=== PATIENT | male | born 1955 | race African-American/Black ===

== ENCOUNTER 2019-12-03 13:25 | Inpatient (IN) | payer OTHER ==
--- NOTE | 2019-12-03 14:17 | BHS.RME ---
Substance Use & Tx History - Substance Use History Heroin Substance amount: 1.5 bundle Frequency of use: Daily Substance route: Inhalation (ex: sniffing or snorting) Date of Last Use: 12/02/19 Alcohol Substance amount: 3 shots Vodka Frequency of use: Less than 3 times per week Substance route: Oral Date of Last Use: 12/02/19 Marijuana/Hashish Substance amount: few drags on a joint Frequency of use: Daily Substance route: Smoking Date of Last Use: 12/02/19 Nicotine Substance amount: 10 cigs Frequency of use: Daily Substance route: Smoking Date of Last Use: 12/03/19 Physical/Psych/Mental Status - Behavior General Behavior: Increased activity (restlessness, agitation) Eye Contact: Normal - Cooperativeness Cooperativeness: Cooperative - Thinking Thought Processes: Tight Thought content: Future oriented - Physical Health Problems Is patient presently having any pain?: No Does patient presently have any injuries (include location): No Does patient currently have a fever: No COWS - Scale Resting Pulse: 0= [place] 80 or Below Sweatin= Beads of Sweat on Face Restless Observation: 1= Difficult to Sit Still Pupil Size: 0= Normal to Room Light Bone or Joint Aches: 1= Mild Discomfort Runny Nose/ Eye Tearin= Runny Nose/Eyes GI Upset > 30mins: 2= Nausea/Diarrhea Tremor Observation: 2= Slight Tremor Visible Yawning Observation: 0= None Anxiety or Irritability: 1=Feels Anxious/Irritable Goose Flesh Skin: 0=Smooth Skin COWS Score: 12 CIWA Nausea/Vomitin-Mild Nausea/No Vomiting Muscle Tremors: 2 Anxiety: 3 Agitation: 0-Normal Activity Paroxysmal Sweats: 4-Forehead w/Sweat Beads Orientation: 0-Oriented Tacttile Disturbances: 0-None Auditory Disturbances: 0-None Visual Disturbances: 0-None Headache: 0-None Present CIWA-Ar Total Score: 10
[2019-12-03 17:14] VITALS: BMI 20.2
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
[2019-12-03] MEDS ORDERED: MAGNESIUM CITRATE 300 ML BOTTLE PO PRN (18:12)
[2019-12-03] MEDS ORDERED: MAG HYDROX/AL HYDROX/SIMETH 30 ML UNIT-DOSE CUP PO PRN (18:12)
[2019-12-03] MEDS ORDERED: MENTHOL/PHENOL 1 EACH UD MM PRN (18:12)
[2019-12-03] MEDS ORDERED: P-EPHED 60MG/TRIPROLIDI 2.5MG TABLET PO PRN (18:12)
[2019-12-03] MEDS ORDERED: guaiFENesin 200 MG/10 ML 10 ML UNIT-DOSE CUPS PO PRN (18:12)
[2019-12-03] MEDS ORDERED: NICOTINE POLACRILEX 2 MG GUM BUC PRN (18:12)
[2019-12-03] MEDS ORDERED: ACETAMINOPHEN 325 MG TABLET (FP) PO PRN ×2 (18:12)
[2019-12-03] MEDS ORDERED: IBUPROFEN 400 MG TABLET (FP) PO PRN (18:12)
[2019-12-03] MEDS ORDERED: ONDANSETRON *ODT* 4 MG TABLET SL ONE (18:12)
[2019-12-03] MEDS ORDERED: BISMUTH SUBSALICYLATE 524 MG/30 ML UD PO PRN (18:12)
[2019-12-03] MEDS ORDERED: diazePAM 5 MG TABLET PO PRN (18:18)
[2019-12-03] MEDS ORDERED: METHADONE HCL 10 MG TABLET (FOR DETOX USE ONLY) PO ONE (18:24)
[2019-12-04] MEDS: MELATONIN 5 MG TABLETS PO SCH ×2 (00:17→21:07)
[2019-12-04] MEDS: THIAMINE HCL 100 MG TABLET (FP) PO SCH ×2 (00:17→21:07)
[2019-12-04] MEDS: hydrOXYzine PAMOATE 50 MG CAPSULE (FP) PO SCH ×2 (00:17→22:47)
[2019-12-04] MEDS ORDERED: METHADONE HCL 10 MG TABLET (FOR DETOX USE ONLY) ONE (09:05)
[2019-12-04] MEDS ORDERED: METHADONE HCL 5 MG TABLET (FOR DETOX USE ONLY) ONE (09:05)
[2019-12-04] MEDS ORDERED: METHADONE (DETOX) 20 MG, METHADONE (DETOX) 5 MG PO ONE (10:00)
[2019-12-04 10:13] LABS: HEMATOCRIT 40.3 % (35.4-49); HEMOGLOBIN 13.4 GM/dL (11.7-16.9); MCH 30.5 pg (25.7-33.7); MCHC 33.3 g/dl (32.0-35.9); MEAN CELL VOLUME 91.6 fl (80-96); MEAN PLT VOLUME 9.6 fl (7.5-11.1); PLATELET COUNT 194 K/MM3 (134-434); RDW 13.5 % (11.9-15.9); WHITE BLOOD COUNT 3.7 K/mm3 (4.0-10.0)
[2019-12-04 10:22] LABS: ALBUMIN 3.1 g/dl (3.4-5.0); BILIRUBIN,TOTAL 0.6 mg/dL (0.2-1); BLOOD UREA NITROGEN 12.6 mg/dL (7-18); CALCIUM 8.8 mg/dL (8.5-10.1); CREATININE 0.9 mg/dL (0.55-1.3); POTASSIUM 3.9 mmol/L (3.5-5.1); TOT PROT 5.9 g/dl (6.4-8.2)
[2019-12-04] MEDS: PRENATAL VITAMINS W/ FOLIC ACID TABLET (FP) PO SCH (10:29)
[2019-12-04] MEDS: NICOTINE 14 MG/24 HOURS TOPICAL PATCH TD SCH (10:29)
--- NOTE | 2019-12-04 11:33 | PN ---
BHS COWS - Scale Resting Pulse: 0= [place] 80 or Below Sweatin= Chills/Flushing Restless Observation: 1= Difficult to Sit Still Pupil Size: 0= Normal to Room Light Bone or Joint Aches: 2= Severe Diffuse Aches Runny Nose/ Eye Tearin= Nasal Congestion GI Upset > 30mins: 0= None Tremor Observation of Outstretched Hands: 2= Slight Tremor Visible Yawning Observation: 0= None Anxiety or Irritability: 2=Irritable/Anxious Goose Flesh Skin: 0=Smooth Skin COWS Score: 9 BHS Progress Note (SOAP) Subjective: Complaints of chills, anxiety, joint aches, and nasal congestion. Objective: 12/04/19 11:32 Vital Signs 12/04/19 12/04/19 12/04/19 05:43 06:37 09:02 Temperature 98 F 97.8 F Pulse Rate 42 L 45 L 53 L Respiratory 16 19 Rate Blood Pressure 167/95 147/79 142/76 O2 Sat by Pulse 97 Oximetry (%) 12/04/19 09:28 Temperature Pulse Rate Respiratory Rate Blood Pressure O2 Sat by Pulse 96 Oximetry (%) Laboratory Last Values WBC 3.7 K/mm3 (4.0-10.0) L 12/04/19 07:25 RBC 4.40 M/mm3 (4.00-5.60) 12/04/19 07:25 Hgb 13.4 GM/dL (11.7-16.9) 12/04/19 07:25 Hct 40.3 % (35.4-49) 12/04/19 07:25 MCV 91.6 fl (80-96) 12/04/19 07:25 MCH 30.5 pg (25.7-33.7) 12/04/19 07:25 MCHC 33.3 g/dl (32.0-35.9) 12/04/19 07:25 RDW 13.5 % (11.9-15.9) 12/04/19 07:25 Plt Count 194 K/MM3 (134-434) 12/04/19 07:25 MPV 9.6 fl (7.5-11.1) 12/04/19 07:25 Sodium 141 mmol/L (136-145) 12/04/19 07:25 Potassium 3.9 mmol/L (3.5-5.1) 12/04/19 07:25 Chloride 105 mmol/L (98-107) 12/04/19 07:25 Carbon Dioxide 30 mmol/L (21-32) 12/04/19 07:25 Anion Gap 6 MMOL/L (8-16) L 12/04/19 07:25 BUN 12.6 mg/dL (7-18) 12/04/19 07:25 Creatinine 0.9 mg/dL (0.55-1.3) 12/04/19 07:25 Est GFR (CKD-EPI)AfAm 104.24 12/04/19 07:25 Est GFR (CKD-EPI)NonAf 89.94 12/04/19 07:25 Random Glucose 85 mg/dL (74-106) 12/04/19 07:25 Calcium 8.8 mg/dL (8.5-10.1) 12/04/19 07:25 Total Bilirubin 0.6 mg/dL (0.2-1) 12/04/19 07:25 AST 17 U/L (15-37) 12/04/19 07:25 ALT 13 U/L (13-61) 12/04/19 07:25 Alkaline Phosphatase 62 U/L (45-117) 12/04/19 07:25 Total Protein 5.9 g/dl (6.4-8.2) L 12/04/19 07:25 Albumin 3.1 g/dl (3.4-5.0) L 12/04/19 07:25 Syphilis Serology Non-reactive (NONREACTIVE) 12/04/19 07:25 Labs noted. Assessment: 12/03Alert and oriented x 3, in no acute respiratory distress. Full ROM, ambulating in unit without assistance. Skin warm to touch without any lesions. Withdrawal symptoms. Plan: Continue detox protocol.
--- NOTE | 2019-12-04 15:00 | EKG ---
Test Reason : Blood Pressure : / mmHG Vent. Rate : 049 BPM Atrial Rate : 049 BPM P-R Int : 128 ms QRS Dur : 092 ms QT Int : 446 ms P-R-T Axes : 029 048 077 degrees QTc Int : 402 ms SINUS BRADYCARDIA POSSIBLE LEFT ATRIAL ENLARGEMENT INCOMPLETE RIGHT BUNDLE BRANCH BLOCK LEFT VENTRICULAR HYPERTROPHY CANNOT RULE OUT SEPTAL INFARCT , AGE UNDETERMINED ABNORMAL ECG NO PREVIOUS ECGS AVAILABLE Confirmed by Juan Manuel Jean ([id number]) on 12/04/2019 3:00:13 PM Referred By: Confirmed By:Juan Manuel Jean
[2019-12-05] MEDS ORDERED: METHADONE HCL 10 MG TABLET (FOR DETOX USE ONLY) PO ONE (10:00)
--- NOTE | 2019-12-05 10:34 | PN ---
BHS COWS - Scale Resting Pulse: 1= [place] 81-100 Sweatin= Chills/Flushing Restless Observation: 1= Difficult to Sit Still Pupil Size: 0= Normal to Room Light Bone or Joint Aches: 1= Mild Discomfort Runny Nose/ Eye Tearin= None GI Upset > 30mins: 0= None Tremor Observation of Outstretched Hands: 1= Tremor [place], Not Seen Yawning Observation: 0= None Anxiety or Irritability: 2=Irritable/Anxious Goose Flesh Skin: 0=Smooth Skin COWS Score: 7 BHS Progress Note (SOAP) Subjective: Complaints of irritability, interrupted sleep, chills and body aches. Objective: 12/05/19 10:33 Vital Signs 12/05/19 12/05/19 05:21 08:57 Temperature 97.1 F L 98.4 F Pulse Rate 42 L 83 Respiratory 16 17 Rate Blood Pressure 143/70 121/72 O2 Sat by Pulse 98 98 Oximetry (%) Laboratory Last Values WBC 3.7 K/mm3 (4.0-10.0) L 12/04/19 07:25 RBC 4.40 M/mm3 (4.00-5.60) 12/04/19 07:25 Hgb 13.4 GM/dL (11.7-16.9) 12/04/19 07:25 Hct 40.3 % (35.4-49) 12/04/19 07:25 MCV 91.6 fl (80-96) 12/04/19 07:25 MCH 30.5 pg (25.7-33.7) 12/04/19 07:25 MCHC 33.3 g/dl (32.0-35.9) 12/04/19 07:25 RDW 13.5 % (11.9-15.9) 12/04/19 07:25 Plt Count 194 K/MM3 (134-434) 12/04/19 07:25 MPV 9.6 fl (7.5-11.1) 12/04/19 07:25 Sodium 141 mmol/L (136-145) 12/04/19 07:25 Potassium 3.9 mmol/L (3.5-5.1) 12/04/19 07:25 Chloride 105 mmol/L (98-107) 12/04/19 07:25 Carbon Dioxide 30 mmol/L (21-32) 12/04/19 07:25 Anion Gap 6 MMOL/L (8-16) L 12/04/19 07:25 BUN 12.6 mg/dL (7-18) 12/04/19 07:25 Creatinine 0.9 mg/dL (0.55-1.3) 12/04/19 07:25 Est GFR (CKD-EPI)AfAm 104.24 12/04/19 07:25 Est GFR (CKD-EPI)NonAf 89.94 12/04/19 07:25 Random Glucose 85 mg/dL (74-106) 12/04/19 07:25 Calcium 8.8 mg/dL (8.5-10.1) 12/04/19 07:25 Total Bilirubin 0.6 mg/dL (0.2-1) 12/04/19 07:25 AST 17 U/L (15-37) 12/04/19 07:25 ALT 13 U/L (13-61) 12/04/19 07:25 Alkaline Phosphatase 62 U/L (45-117) 12/04/19 07:25 Total Protein 5.9 g/dl (6.4-8.2) L 12/04/19 07:25 Albumin 3.1 g/dl (3.4-5.0) L 12/04/19 07:25 Syphilis Serology Non-reactive (NONREACTIVE) 12/04/19 07:25 COVID-19 (CANDIDO) Not detected (Not Detected) 12/03/19 19:00 Labs noted. Assessment: 12/05/19 10:33 Alert and oriented x 3, in no acute respiratory distress. Full ROM, ambulatory in unit without any assistance. Skin warm to touch without any lesions. Withdrawal symptoms. Plan: Continue detox protocol.
[2019-12-05] MEDS: PRENATAL VITAMINS W/ FOLIC ACID TABLET (FP) PO SCH (10:37)
[2019-12-05] MEDS: MAGNESIUM HYDROX 2400MG/30ML ORAL SUSPENSION 30 ML CUP PO PRN (10:39)
[2019-12-05] MEDS: NICOTINE 14 MG/24 HOURS TOPICAL PATCH TD SCH (10:40)
[2019-12-05] MEDS: hydrOXYzine PAMOATE 50 MG CAPSULE (FP) PO SCH (22:38)
[2019-12-05] MEDS: MELATONIN 5 MG TABLETS PO SCH (22:40)
[2019-12-05] MEDS: THIAMINE HCL 100 MG TABLET (FP) PO SCH (22:40)
[2019-12-06] MEDS ORDERED: METHADONE HCL 10 MG TABLET (FOR DETOX USE ONLY) ONE (09:26)
[2019-12-06] MEDS ORDERED: METHADONE HCL 5 MG TABLET (FOR DETOX USE ONLY) ONE (09:26)
[2019-12-06] MEDS ORDERED: METHADONE (DETOX) 10 MG, METHADONE (DETOX) 5 MG PO ONE (10:00)
[2019-12-06] MEDS: NICOTINE 14 MG/24 HOURS TOPICAL PATCH TD SCH (10:59)
[2019-12-06] MEDS: PRENATAL VITAMINS W/ FOLIC ACID TABLET (FP) PO SCH (10:59)
[2019-12-06] MEDS: MAGNESIUM HYDROX 2400MG/30ML ORAL SUSPENSION 30 ML CUP PO PRN (11:00)
[2019-12-06 11:52] VITALS: BP 144/64; PULSE 42; TEMP 98.6
--- NOTE | 2019-12-06 12:29 | PN ---
[facility] CIWA - CIWA Score Nausea/Vomitin-No Nausea/No Vomiting Muscle Tremors: None Anxiety: 1-Mildly Anxious Agitation: 0-Normal Activity Paroxysmal Sweats: No Perspiration Orientation: 0-Oriented Tacttile Disturbances: 0-None Auditory Disturbances: 0-None Visual Disturbances: 0-None Headache: 0-None Present CIWA-Ar Total Score: 1 S COWS - Scale Resting Pulse: 0= [place] 80 or Below Sweatin= No chills or Flushing Restless Observation: 0= Sits Still Pupil Size: 0= Normal to Room Light Bone or Joint Aches: 0= None Runny Nose/ Eye Tearin= None GI Upset > 30mins: 0= None Tremor Observation of Outstretched Hands: 0= None Yawning Observation: 0= None Anxiety or Irritability: 1=Feels Anxious/Irritable Goose Flesh Skin: 0=Smooth Skin COWS Score: 1 [facility] Progress Note (SOAP) Subjective: alert,no complaint Objective: 12/06/19 12:26 Vital Signs Temperature 98.6 F 12/06/19 09:03 Pulse Rate 42 L 12/06/19 09:03 Respiratory Rate 18 12/06/19 09:03 Blood Pressure 144/64 12/06/19 09:03 O2 Sat by Pulse Oximetry (%) 99 12/06/19 09:03 12/06/19 12:26 no withdrawal symptom 12/06/19 12:27 Laboratory Last Values WBC 3.7 K/mm3 (4.0-10.0) L 12/04/19 07:25 RBC 4.40 M/mm3 (4.00-5.60) 12/04/19 07:25 Hgb 13.4 GM/dL (11.7-16.9) 12/04/19 07:25 Hct 40.3 % (35.4-49) 12/04/19 07:25 MCV 91.6 fl (80-96) 12/04/19 07:25 MCH 30.5 pg (25.7-33.7) 12/04/19 07:25 MCHC 33.3 g/dl (32.0-35.9) 12/04/19 07:25 RDW 13.5 % (11.9-15.9) 12/04/19 07:25 Plt Count 194 K/MM3 (134-434) 12/04/19 07:25 MPV 9.6 fl (7.5-11.1) 12/04/19 07:25 Sodium 141 mmol/L (136-145) 12/04/19 07:25 Potassium 3.9 mmol/L (3.5-5.1) 12/04/19 07:25 Chloride 105 mmol/L (98-107) 12/04/19 07:25 Carbon Dioxide 30 mmol/L (21-32) 12/04/19 07:25 Anion Gap 6 MMOL/L (8-16) L 12/04/19 07:25 BUN 12.6 mg/dL (7-18) 12/04/19 07:25 Creatinine 0.9 mg/dL (0.55-1.3) 12/04/19 07:25 Est GFR (CKD-EPI)AfAm 104.24 12/04/19 07:25 Est GFR (CKD-EPI)NonAf 89.94 12/04/19 07:25 Random Glucose 85 mg/dL (74-106) 12/04/19 07:25 Calcium 8.8 mg/dL (8.5-10.1) 12/04/19 07:25 Total Bilirubin 0.6 mg/dL (0.2-1) 12/04/19 07:25 AST 17 U/L (15-37) 12/04/19 07:25 ALT 13 U/L (13-61) 12/04/19 07:25 Alkaline Phosphatase 62 U/L (45-117) 12/04/19 07:25 Total Protein 5.9 g/dl (6.4-8.2) L 12/04/19 07:25 Albumin 3.1 g/dl (3.4-5.0) L 12/04/19 07:25 Syphilis Serology Non-reactive (NONREACTIVE) 12/04/19 07:25 COVID-19 (CANDIDO) Not detected (Not Detected) 12/03/19 19:00 Assessment: 12/06/19 12:27 no withdrawal symptom Plan: stable for discharge today,follow up with after care program as arrangement
--- NOTE | 2019-12-06 12:34 | DS ---
[facility] Detox Discharge Summary Admission Date: 12/03/19 Discharge Date: 12/06/19 - History Present History: Alcohol Dependence, Cocaine Dependence, Opioid Dependence Additional Comments: alert,oriented x 3 ambulation on the unit lung clear on auscultation bilaterally abdomen soft,no distension,no pain no swelling of legs no withdrawal symptom stable for discharge today patient will go home and stay with his daughter decline rehab in [place] stated will go to [facility] by himself left the unit in stable condition total time spnding on discharge 35 minutes Pertinent Past History: nicotine dependence - Physical Exam Results Vital Signs: Vital Signs Temperature 98.6 F 12/06/19 09:03 Pulse Rate 42 L 12/06/19 09:03 Respiratory Rate 18 12/06/19 09:03 Blood Pressure 144/64 12/06/19 09:03 O2 Sat by Pulse Oximetry (%) 99 12/06/19 09:03 Pertinent Admission Physical Exam Findings: withdrawal signs and symptom Laboratory Last Values WBC 3.7 K/mm3 (4.0-10.0) L 12/04/19 07:25 RBC 4.40 M/mm3 (4.00-5.60) 12/04/19 07:25 Hgb 13.4 GM/dL (11.7-16.9) 12/04/19 07:25 Hct 40.3 % (35.4-49) 12/04/19 07:25 MCV 91.6 fl (80-96) 12/04/19 07:25 MCH 30.5 pg (25.7-33.7) 12/04/19 07:25 MCHC 33.3 g/dl (32.0-35.9) 12/04/19 07:25 RDW 13.5 % (11.9-15.9) 12/04/19 07:25 Plt Count 194 K/MM3 (134-434) 12/04/19 07:25 MPV 9.6 fl (7.5-11.1) 12/04/19 07:25 Sodium 141 mmol/L (136-145) 12/04/19 07:25 Potassium 3.9 mmol/L (3.5-5.1) 12/04/19 07:25 Chloride 105 mmol/L (98-107) 12/04/19 07:25 Carbon Dioxide 30 mmol/L (21-32) 12/04/19 07:25 Anion Gap 6 MMOL/L (8-16) L 12/04/19 07:25 BUN 12.6 mg/dL (7-18) 12/04/19 07:25 Creatinine 0.9 mg/dL (0.55-1.3) 12/04/19 07:25 Est GFR (CKD-EPI)AfAm 104.24 12/04/19 07:25 Est GFR (CKD-EPI)NonAf 89.94 12/04/19 07:25 Random Glucose 85 mg/dL (74-106) 12/04/19 07:25 Calcium 8.8 mg/dL (8.5-10.1) 12/04/19 07:25 Total Bilirubin 0.6 mg/dL (0.2-1) 12/04/19 07:25 AST 17 U/L (15-37) 12/04/19 07:25 ALT 13 U/L (13-61) 12/04/19 07:25 Alkaline Phosphatase 62 U/L (45-117) 12/04/19 07:25 Total Protein 5.9 g/dl (6.4-8.2) L 12/04/19 07:25 Albumin 3.1 g/dl (3.4-5.0) L 12/04/19 07:25 Syphilis Serology Non-reactive (NONREACTIVE) 12/04/19 07:25 COVID-19 (CANDIDO) Not detected (Not Detected) 12/03/19 19:00 Vital Signs Temperature 98.6 F 12/06/19 09:03 Pulse Rate 42 L 12/06/19 09:03 Respiratory Rate 18 12/06/19 09:03 Blood Pressure 144/64 12/06/19 09:03 O2 Sat by Pulse Oximetry (%) 99 12/06/19 09:03 - Treatment Hospital Course: Detox Protocol Followed, Detoxed Safely, Responded well, Discharged Condition Good Patient has Accepted a Rehab Referral to: declined - Medication Discharge Medications: Ambulatory Orders NK [No Known Home Medication] 12/03/19 - Diagnosis (1) Opioid dependence with withdrawal Current Visit: Yes Status: Acute (2) Alcohol dependence, uncomplicated Current Visit: Yes Status: Chronic (3) Cocaine abuse Current Visit: Yes Status: Chronic (4) Nicotine dependence, unspecified, uncomplicated Current Visit: Yes Status: Chronic Qualifiers: Nicotine product type: cigarettes Qualified Code(s): F17.210 - Nicotine dependence, cigarettes, uncomplicated - AMA Did Patient Leave Against Medical Advice: No
[2019-12-07] MEDS ORDERED: METHADONE HCL 10 MG TABLET (FOR DETOX USE ONLY) PO ONE (10:00)
[2019-12-08] MEDS ORDERED: METHADONE HCL 5 MG TABLET (FOR DETOX USE ONLY) PO ONE (06:00)
== END 2019-12-06 12:55 | disposition home or self-care (01) | DRG 773 ==
LOC: YASAS 13:25 → Y6N 17:23
PROVIDERS: ADMIT Allergy & Immunology; ATTEND Allergy & Immunology
PROC: HZ2ZZZZ Detoxification Services for Substance Abuse Treatment (ICD-10-PCS; principal; 2019-12-03)
DX: F11.23 Opioid dependence with withdrawal (principal); F10.230 Alcohol dependence with withdrawal, uncomplicated; F14.20 Cocaine dependence, uncomplicated; F12.20 Cannabis dependence, uncomplicated; F17.210 Nicotine dependence, cigarettes, uncomplicated; F41.9 Anxiety disorder, unspecified
CPT/HCPCS: 36415; 80053; 85027; 86780; 93005; 93010; Q0162; U0003

== ENCOUNTER 2020-11-14 10:28 | Inpatient (IN) | payer OTHER ==
[2020-11-14 11:06] VITALS: BMI 20.8
[2020-11-14] MEDS ORDERED: MENTHOL/PHENOL 1 EACH UD MM PRN (12:47)
[2020-11-14] MEDS ORDERED: MAG HYDROX/AL HYDROX/SIMETH 30 ML UNIT-DOSE CUP PO PRN (12:47)
[2020-11-14] MEDS ORDERED: BISMUTH SUBSALICYLATE 524 MG/30 ML PO PRN (12:47)
[2020-11-14] MEDS ORDERED: MAGNESIUM HYDROX 2400MG/30ML ORAL SUSPENSION 30 ML CUP PO PRN (12:47)
[2020-11-14] MEDS ORDERED: IBUPROFEN 400 MG TABLET (FP) PO PRN (12:47)
[2020-11-14] MEDS ORDERED: MAGNESIUM CITRATE 300 ML BOTTLE PO PRN (12:47)
[2020-11-14] MEDS ORDERED: ACETAMINOPHEN 325 MG TABLET (FP) PO PRN ×2 (12:47)
[2020-11-14] MEDS ORDERED: ONDANSETRON *ODT* 4 MG TABLET SL PRN (12:47)
[2020-11-14] MEDS ORDERED: clonazePAM 0.5 MG ODT TABLETS SL PRN (12:47)
[2020-11-14] MEDS ORDERED: methaDONE HCL 10 MG TABLET (FOR DETOX USE ONLY) PO ONE (13:15)
[2020-11-14] MEDS: PRENATAL VITAMINS W/ FOLIC ACID TABLET (FP) PO SCH (13:56)
[2020-11-14] MEDS: hydrOXYzine PAMOATE 25 MG CAPSULE (FP) PO SCH ×3 (13:56→22:43)
[2020-11-14] MEDS: METHOCARBAMOL 500 MG TABLET PO PRN (13:56)
[2020-11-14 17:38] LABS: ALBUMIN 3.4 g/dl (3.4-5.0); BLOOD UREA NITROGEN 13.4 mg/dL (7-18); HEMOGLOBIN 13.1 GM/dL (11.7-16.9); MCH 29.6 pg (25.7-33.7); MCHC 33.6 g/dl (32.0-35.9); MEAN PLT VOLUME 9.2 fl (7.5-11.1); PLATELET COUNT 222 10^3/uL (134-434); RBC 4.43 M/mm3 (4.00-5.60); RDW 13.8 % (11.9-15.9); WHITE BLOOD COUNT 4.8 K/mm3 (4.0-10.0)
[2020-11-14 17:41] LABS: CREATININE 0.9 mg/dL (0.55-1.3)
[2020-11-14 17:43] LABS: BILIRUBIN,TOTAL 0.6 mg/dL (0.2-1); TOT PROT 6.4 g/dl (6.4-8.2)
[2020-11-14] MEDS: MELATONIN 5 MG TABLETS PO SCH (22:42)
[2020-11-14] MEDS: THIAMINE HCL 100 MG TABLET (FP) PO SCH (22:43)
[2020-11-15] MEDS: hydrOXYzine PAMOATE 25 MG CAPSULE (FP) PO SCH ×2 (05:05→10:32)
[2020-11-15] MEDS: METHOCARBAMOL 500 MG TABLET PO PRN (06:50)
[2020-11-15] MEDS: cloNIDine HCL 0.1 MG TABLET PO PRN (06:50)
[2020-11-15] MEDS ORDERED: methaDONE HCL 10 MG TABLET (FOR DETOX USE ONLY) ONE (09:13)
[2020-11-15] MEDS: PRENATAL VITAMINS W/ FOLIC ACID TABLET (FP) PO SCH (10:28)
[2020-11-15] MEDS: hydrOXYzine PAMOATE 25 MG CAPSULE (FP) PO PRN (10:30)
[2020-11-15] MEDS: THIAMINE HCL 100 MG TABLET (FP) PO SCH ×2 (23:02→23:59)
[2020-11-15] MEDS: MELATONIN 5 MG TABLETS PO SCH (23:02)
[2020-11-16] MEDS: MELATONIN 5 MG TABLETS PO SCH ×2 (00:02→23:14)
[2020-11-16] MEDS: hydrOXYzine PAMOATE 25 MG CAPSULE (FP) PO PRN ×2 (03:05→19:03)
[2020-11-16] MEDS: METHOCARBAMOL 500 MG TABLET PO PRN ×2 (03:05→11:17)
[2020-11-16] MEDS ORDERED: methaDONE HCL 10 MG TABLET (FOR DETOX USE ONLY) PO ONE (10:00)
[2020-11-16] MEDS: PRENATAL VITAMINS W/ FOLIC ACID TABLET (FP) PO SCH (11:17)
[2020-11-16] MEDS ORDERED: traZODone HCL 50 MG TABLET (FP) PO PRN (12:39)
[2020-11-16] MEDS: cloNIDine HCL 0.1 MG TABLET PO PRN (19:04)
[2020-11-16] MEDS: THIAMINE HCL 100 MG TABLET (FP) PO SCH (23:14)
[2020-11-17] MEDS ORDERED: methaDONE HCL 10 MG TABLET (FOR DETOX USE ONLY) ONE (09:05)
[2020-11-17 09:31] VITALS: BP 144/72; PULSE 40; TEMP 96.6
[2020-11-17] MEDS: METHOCARBAMOL 500 MG TABLET PO PRN (10:03)
[2020-11-17] MEDS: PRENATAL VITAMINS W/ FOLIC ACID TABLET (FP) PO SCH (10:05)
[2020-11-18] MEDS ORDERED: methaDONE HCL 10 MG TABLET (FOR DETOX USE ONLY) PO ONE (10:00)
== END 2020-11-17 10:53 | disposition left against medical advice (07) | DRG 770 ==
LOC: YASAS 10:28 → Y3N 12:22
PROVIDERS: ADMIT Allergy & Immunology; ATTEND Allergy & Immunology
PROC: HZ2ZZZZ Detoxification Services for Substance Abuse Treatment (ICD-10-PCS; principal; 2020-11-14)
DX: F11.23 Opioid dependence with withdrawal (principal); F10.230 Alcohol dependence with withdrawal, uncomplicated; F14.20 Cocaine dependence, uncomplicated; F12.20 Cannabis dependence, uncomplicated; F17.210 Nicotine dependence, cigarettes, uncomplicated; F19.282 Other psychoactive substance dependence with psychoactive substance-induced sleep disorder; Z56.0 Unemployment, unspecified; Z59.0 Homelessness
CPT/HCPCS: 36415; 80053; 85027; 86780; C9803; J0735; U0003; U0005